=== PATIENT | male | born 1970 | race Caucasian/White ===

== ENCOUNTER → 2017-06-16 | Outpatient (CLI) | payer OTHER ==
[~2017-06-16] MED LIST: GABA-549 PO; HYDR-2966 PO; HYDR-4309 PO; LEVO500T83 PO; LISI20TA29 PO; NAPR-724 PO
[2017-06-16 09:33] LABS: PLATELET COUNT, AUTOMATED 244 K/uL (150-450)
[2017-06-16 09:56] LABS: LDL CHOLESTEROL 112 mg/dl
== END ==
LOC: LAB 09:14
PROVIDERS: ATTEND Nurse Practitioner Family
DX: E78.5 Hyperlipidemia, unspecified (principal); R71.8 Other abnormality of red blood cells; G62.9 Polyneuropathy, unspecified
CPT/HCPCS: 36415; 82040; 82247; 82310; 82374; 82435; 82465; 82565; 82728; 82947; 83540; 83718; 84075; 84132; 84155; 84295; 84450; 84460; 84478; 84520; 85025

== ENCOUNTER → 2017-10-03 | Outpatient (CLI) | payer OTHER ==
[~2017-10-03] MED LIST changes: -NAPR-724 PO; +NAPR500T31 PO
== END ==
LOC: LAB 14:56
PROVIDERS: ATTEND Psychiatry & Neurology Neurology
DX: G60.3 Idiopathic progressive neuropathy (principal)
CPT/HCPCS: 36415; 82525; 83921; 84160; 84165; 84446

== ENCOUNTER → 2018-03-31 | Outpatient (CLI) | payer OTHER ==
[~2018-03-31] MED LIST changes: -HYDR-4309 PO; +HYDR-653 PO
--- NOTE | 2018-03-31 14:53 | RADIOLOGY IMAGING REPORT ---
FACILITY: [facility] PATIENT NAME: Reza Pham : 1970 MR: [id number] V: [id number] EXAM DATE: ORDERING PHYSICIAN: BRANDI BAILEY TECHNOLOGIST: [facility] Patient: Reza Pham : 1970 Visit/Account:[id number] Date of Sevice: 03/31/2018 Exam type: RIBS RIGHT History: Fell working last Saturday, right anterior and posterior rib pain Comparison: None. Findings: Four views of the right ribs demonstrate no gross evidence of acute fracture. PA view the chest reve als no evidence of pleural effusion or pneumothorax or pulmonary consolidation. The cardiac silhouet te is normal in size. There are surgical clips projecting over the lower cervical spine. There has been surgical resection of the distal aspect of the right clavicle. A sclerotic changes in the right humeral head could represent a bone infarct however if patient symptomatic short-term interval follo w-up recommended to exclude a bone lesion IMPRESSION: 1. No gross evidence of acute right rib fracture Post surgical changes of the distal right clavicle Sclerotic changes in the right humeral head may represent a bone infarct however if patient has pain short-term interval follow-up is recommended to exclude bone lesion Report Dictated By: Iris Gutierrez MD at 03/31/2018 2:45 PM Report E-Signed By: Iris Gutierrez MD at 03/31/2018 2:48 PM WSN:[email or web address]
== END ==
LOC: RAD 13:22
PROVIDERS: ATTEND Nurse Practitioner Family
DX: R07.81 Pleurodynia (principal)
CPT/HCPCS: 71100

== ENCOUNTER → 2018-10-03 | Outpatient (CLI) | payer OTHER ==
--- NOTE | 2018-10-03 14:46 | RADIOLOGY IMAGING REPORT ---
FACILITY: [facility] PATIENT NAME: Reza Pham : 1970 MR: [id number] V: [id number] EXAM DATE: ORDERING PHYSICIAN: GINNY JARVIS TECHNOLOGIST: Location: [facility] Patient: Reza Pham : 1970 Visit/Account:[id number] Date of Sevice: 10/03/[address] scan without contrast COMPARISONS: None ADDITIONAL PERTINENT HISTORY: Chronic headaches TECHNIQUE: Multiple axial images were obtained from the skull base to the vertex without IV contrast . One of the following dose optimization techniques was utilized in the performance of this exam: Aut omated exposure control; adjustment of the mA and/or kV according to the patient's size; or use of an iterative reconstruction technique. Specific details can be referenced in the facility's radiology CT exam operational policy. FINDINGS: Midline shift: Negative Ventricles: Negative Brain parenchyma: Negative Extra-axial spaces: Negative Intracranial vasculature: Negative Osseous structures: Negative Paranasal sinuses and mastoid air cells: Small mucous retention cyst involving the left maxillary si nus. Otherwise negative Surrounding soft tissues and orbits: Negative IMPRESSION: 1. No evidence of acute intracranial pathology. 2. Mild underlying paranasal sinus disease. Report Dictated By: Guanaco Milan MD at 10/03/2018 2:39 PM Report E-Signed By: Guanaco Milan MD at 10/03/2018 2:42 PM WSN:[id number]
== END ==
LOC: CT 13:55
PROVIDERS: ATTEND Nurse Practitioner Family
DX: R51 Headache (principal)
CPT/HCPCS: 70450